=== PATIENT | female | born 1990 | race Caucasian/White ===

== ENCOUNTER 2018-08-22 19:07 | Emergency (ER) | payer BC ==
[2018-08-22 19:20] VITALS: BP 108/68
[2018-08-22] MEDS ORDERED: Sodium Chloride 0.9% 10 ML Syringe FLUSH PRN (19:51)
[2018-08-22] MEDS ORDERED: Ondansetron 4 MG/2 ML SDV IVPUSH ONE (19:51)
[2018-08-22] MEDS ORDERED: Sodium Chloride 0.9% 1,000 ML IV SCH (20:00)
--- NOTE | 2018-08-22 21:59 | EDM.PDOC ---
ED HPI GENERAL MEDICAL PROBLEM - General Chief Complaint: Abdominal Pain Stated Complaint: SIDE PAIN Time Seen by Provider: 08/22/18 19:41 Source of Information: Reports: Patient, RN Notes Reviewed - History of Present Illness INITIAL COMMENTS - FREE TEXT/NARRATIVE: 28 year old female about 15 weeks has been somewhat ill with cough, samy. for about 2 weeks, became more ill with abd cramping, nausea, vomiting about 3 hours ago. Continues to feel very nauseated. Cough has been mostly nonprod. Mild Archer. No diarrhea, no vag. bleeding or spotting. has been going well. Bilateral Abdominal Pain Score (Numeric/FACES): 6 - Related Data Allergies Allergy/AdvReac Type Severity Reaction Status Date / Time No Known Allergies Allergy Verified 08/22/18 19:19 Home Meds: Home Meds Pnv with Ca,No.71/Iron/Fa [ Vitamin Tablet] 1 each PO 01/22/14 [History] Past Medical History - Past Health History Medical/Surgical History: Denies Medical/Surgical History DEMI CHEF History: Reports: - Past Surgical History HEENT Surgical History: Reports: Oral Surgery Musculoskeletal Surgical History: Reports: Other (See Below) Other Musculoskeletal Surgeries/Procedures:: arm surgery Social & Family History - Tobacco Use Smoking Status *Q: Never Smoker - Caffeine Use Caffeine Use: Reports: None - Recreational Drug Use Recreational Drug Use: No ED ROS GENERAL - Review of Systems Review Of Systems: See Below Constitutional: Reports: Chills. Denies: Fever HEENT: Denies: Sinus Problem, Throat Pain Respiratory: Reports: Cough. Denies: Shortness of Breath Cardiovascular: Denies: Chest Pain GI/Abdominal: Reports: Abdominal Pain (generalized cramping, now better) : Reports: Frequency. Denies: Dysuria, Pain Musculoskeletal: Reports: No Symptoms Skin: Denies: Rash Neurological: Reports: Headache (mild) ED EXAM, GI/ABD - Physical Exam Exam: See Below General Appearance: Alert, Mild Distress Eyes: Bilateral: Normal Appearance Throat/Mouth: Normal Inspection, Normal Oropharynx Neck: Supple, Full Range of Motion Respiratory/Chest: No Respiratory Distress, Lungs Clear, Normal Breath Sounds Cardiovascular: Tachycardia GI/Abdominal Exam: Soft, Tender (mild diffuse tenderness). No: No Distention, Rebound Back Exam: No: CVA Tenderness (L), CVA Tenderness (R) Extremities: Normal Inspection Neurological: Alert, Oriented, No Motor/Sensory Deficits Skin Exam: Warm, Dry, Normal Color Course - Vital Signs Last Recorded V/S: Last Vital Signs Temp 98.2 F 08/22/18 19:16 Pulse 106 H 08/22/18 19:16 Resp 18 08/22/18 19:16 BP 108/68 08/22/18 19:16 Pulse Ox 100 08/22/18 19:16 - Orders/Labs/Meds Orders: Active Orders 24 hr Category Date Time Status Peripheral IV Care [RC] . DIRECTED Care 08/22/18 19:51 Active Peripheral IV Insertion Adult [OM.PC] Stat Oth 08/22/18 19:51 Ordered Meds: Medications Discontinued Medications Generic Name Dose Route Start Last Admin Trade Name Freq PRN Reason Stop Dose Admin Sodium Chloride 1,000 mls @ 999 mls/hr 08/22/18 20:00 08/22/18 20:05 Normal Saline IV 999 mls/hr ONETIME FRIDA Administration Ondansetron HCl 4 mg 08/22/18 19:51 08/22/18 20:05 Zofran IVPUSH 08/22/18 19:52 4 mg ONETIME ONE Administration Sodium Chloride 10 ml 08/22/18 19:51 08/22/18 20:06 Saline Flush FLUSH 10 ml ASDIRECTED PRN Administration Keep Vein Open - Re-Assessments/Exams Free Text/Narrative Re-Assessment/Exam: 08/22/18 22:30 pt was feeling much better after 1 liter of NS, zofran 4 mg IV, slightly nauseated, pain if gone for now, no further vomiting while here in the ED, feels up to going home, discharge instructions as documented. Departure - Departure Time of Disposition: 21:56 Disposition: Home, Self-Care 01 Condition: Fair Clinical Impression: Abdominal pain Qualifiers: Abdominal location: generalized Qualified Code(s): R10.84 - Generalized abdominal pain Vomiting Qualifiers: Vomiting type: unspecified Vomiting Intractability: non-intractable Nausea presence: with nausea Qualified Code(s): R11.2 - Nausea with vomiting, unspecified - Discharge Information Instructions: Abdominal Pain, Adult Referrals: Nany Li MD [Primary Care Provider] - Forms: ED Department Discharge, ED Return to Work/School Form Additional Instructions: Clear liquids until tomorrow morning or until after symptoms of nausea abdominal pain completely resolved, then very careful bland diet as tolerated. It will be best if you not work tomorrow but you can make that decision based on how you are feeling in the morning. Follow-up clinic if not much better within 1-2 days as expected, return to ED as needed if symptoms worsening in any way. - My Orders Last 24 Hours: My Active Orders 08/22/18 19:51 Peripheral IV Care [RC] . DIRECTED Peripheral IV Insertion Adult [OM.PC] Stat - Assessment/Plan Last 24 Hours: My Active Orders 08/22/18 19:51 Peripheral IV Care [RC] . DIRECTED Peripheral IV Insertion Adult [OM.PC] Stat
== END 2018-08-22 22:12 | disposition home or self-care (01) ==
LOC: JD.ED 19:07
DX: O21.9 Vomiting of pregnancy, unspecified (principal); O99.89 Other specified diseases and conditions complicating pregnancy, childbirth and the puerperium; R10.84 Generalized abdominal pain; Z3A.15 15 weeks gestation of pregnancy
CPT/HCPCS: 87804; 96361; 96374; 99283; J2405; J7040; 99284